=== PATIENT | female | born 1955 | race Caucasian/White ===

== ENCOUNTER 2019-03-29 21:12 | Emergency (ER) | payer MEDICARE ==
[~2019-03-29] VITALS: Ht 170.2 cm; Wt 80.3 kg
--- OUTSIDE RECORDS SUMMARY | 2019-03-29 21:15 | XMS REPORT ---
Author Author [facility] Address Unknown Phone Unavailable Care Team Providers Care Founder Ceo & President Name Role Phone Unavailable Unavailable Payers Payer Name Policy Type Policy Number Effective Date Expiration Date Problems This patient has no known problems. Allergies, Adverse Reactions, Alerts Allergy Name Allergy Type Status Severity Reaction(s) Onset Date Inactive Date Treating Clinician Comments sulfamethoxazole DA Active [place] 2014-04-13 00:00:00 trimethoprim DA Active [place] 2014-04-13 00:00:00 Medications This patient has no known medications. Results Test Description Test Time Test Comments Text Results Atomic Results Result Comments BREAST ULTRASOUND CORE BIOPSY RIGHT 2019-02-13 10:47:08 - BREAST ULTRASOUND CORE BIOPSY RIGHTULTRASOUND GUIDED BIOPSY RIGHT BREAST WITH MARKING DEVICE INSERTED: 02/11/2019CLINICAL: Ultrasound biopsy, right breast. An ultrasound guided biopsy using real-time ultrasound was performed for the 6 cm mass located in the right breast at 4 o'clock 5 cm from the nipple. The skin was prepped in the usual manner. Local anesthetic was administered to the access site. A 14 gauge biopsy needle was placed adjacent to the abnormality under ultrasound guidance. Once the needle was documented to be in the correct location, multiple specimens were obtained using a [employer] biopsy device. A clip was inserted into the biopsy cavity. The specimens were sent to the laboratory for pathological analysis. IMPRESSION: ULTRASOUND GUIDED BIOPSY BENIGN Ultrasound guided biopsy of the 6 cm mass in the right breast at 4 o'clock 5 cm from the nipple was successful with no apparent post procedure complications. PATHOLOGY INDICATES:Benign scar tissue. RECOMMENDATION:A follow-up mammogram and an ultrasound in 6 months is recommended to demonstrate stability. Margarita Rust M.D. dm/:02/13/2019 10:47:08 copy to: Charlie Man MD, ph: [phone], fax: [phone] Technologist: Alise Ojeda , [facility]- DIAG MAMM RIGHT CAD DIGITAL 2019-02-11 12:45:23 - DIAG MAMM RIGHT CAD DIGITALUNILATERAL RIGHT DIGITAL DIAGNOSTIC MAMMOGRAM WITH CAD - RIGHT BREAST POST-PROCEDURE IMAGING FOR MARKER PLACEMENT: 02/11/2019CLINICAL: Post Clip Placement,right breast. Current mammographic images were evaluated by either a [employer] M-Vu or a [employer] CAD (computer aided detection system). Comparison is made to exams dated 01/27/2019 mammogram, 07/01/2010 mammogram, and [facility] The tissue of the right breast is extremely dense, which lowers the sensitivity of mammography. There is a marker clip in the appropriate position in the right breast at 4 o'clock at the biopsy site. This can not be seen on mammogram.IMPRESSION: POST PROCEDURE IMAGING FOR MARKER PLACEMENTThere was a successful marker clip placement in the right breast. Margarita Rust M.D. dm/:02/11/2019 12:45:23 copy to: Charlie Man MD, ph: [phone], fax: [phone] Technologist: Betsy Soriano , [facility]: Post-procedure mammogram for marker placement BREAST ULTRASOUND BILATERAL 2019-01-28 09:40:41 - BREAST ULTRASOUND BILATERALULTRASOUND OF BOTH BREASTS AND BOTH AXILLA: 01/27/2019CLINICAL: History of Breast Cancer. Comparison is made to exam dated 07/01/2010 ultrasound - [facility]. Real-time ultrasound of both breasts and both axilla was performed. There is a 7 cm lobulated partially solid mass in the right breast at 4 o'clock. Color flow imaging demonstrates that there is increased vascularity. No abnormalities were seen sonographically in the left breast or the left axilla. IMPRESSION: SUSPICIOUS OF MALIGNANCY - FOLLOW-UP RECOMMENDEDThe 7 cm lobulated partially solid mass in the right breast needs histological evaluation. An ultrasound guided biopsy is recommended. Margarita Rust M.D. dm/:01/28/2019 09:40:41 Entry: - 01/30/2019 08:37:23copy to: Charlie Man MD, ph: [phone], fax: [phone] Technologist: Nadege ALDRIDGE, [facility]-letter sent: BIRADS 4/5 Biopsy Ultrasound BI-RADS: 4c Suspicious abnormality - moderate concern but not classic for malignancy DIAG MAMM LEFT DOV CAD DIGITAL 2019-01-27 10:32:59 - DIAG MAMM LEFT DOV CAD DIGITALUNILATERAL LEFT DIGITAL DIAGNOSTIC MAMMOGRAM 3D/2D WITH CAD: 01/27/2019CLINICAL: Right breast lump. Digital breast tomosynthesis was performed in addition to routine CC and MLO views. Current mammographic images were evaluated by either a [employer] M-Vu or a [employer] CAD (computer aided detection system). Comparison is made to exams dated 07/01/2010 mammogram and 10/05/2009 mammogram - [facility]-. The tissue of the left breast is extremely dense, which lowers the sensitivity of mammography. No suspicious mass, architectural distortion, malignant type calcification, or lymph node abnormality detected. IMPRESSION: INCOMPLETE ASSESSMENT: ADDITIONAL IMAGING EVALUATION RECOMMENDEDBilateral ultrasound pending for additional evaluation. There is no mammographic evidence of malignancy. Margarita Rust M.D. dm/:01/27/2019 10:32:59 Entry: - 01/30/2019 08:37:02copy to: Charlie Man MD, ph: [phone], fax: [phone] Technologist: Wendy ALDRIDGE, [facility] BI-RADS: 0 Indeterminate
[2019-03-29] MEDS ORDERED: KETOROLAC TROMETHAMINE 60 MG/2 ML VIAL IM ONE (21:30)
[2019-03-29] MEDS ORDERED: ORPHENADRINE CITRATE 30 MG/ML VIAL IM ONE (21:30)
[2019-03-29] MEDS ORDERED: HYDROCODONE/APAP 10MG-325MG TAB PO ONE (21:30)
--- NOTE | 2019-03-29 22:54 | Diagnostic Imaging Report ---
Right hip with pelvis 3 - views HISTORY: Pain COMPARISON: None FINDINGS: No displaced fracture. Osseous alignment is within normal limits. The joint spaces are well-maintained. Phleboliths. IMPRESSION: No acute radiographic abnormality. Signed by: Dr. Racquel Yeung M.D. on 03/29/2019 10:50 PM
--- NOTE | 2019-03-29 22:56 | Diagnostic Imaging Report ---
Lumbar spine 3 - views HISTORY: Pain COMPARISON: None FINDINGS: There are 5 nonrib-bearing lumbar-type vertebral bodies. No displaced fracture. Mild straightening of the normal lordosis may be related to muscle spasm or positioning. Osseous alignment is within normal limits. The disc spaces are relatively preserved. The soft tissues appear unremarkable. Surgical clips projected on right upper quadrant. Considerations of the distal aorta. IMPRESSION: No acute osseous abnormality. Signed by: Dr. Racquel Yeung M.D. on 03/29/2019 10:53 PM
[2019-03-29 23:38] VITALS: BP 130/84
== END 2019-03-29 23:46 | disposition home or self-care (01) ==
LOC: ER 21:12
DX: M25.551 Pain in right hip (principal); S39.012A Strain of muscle, fascia and tendon of lower back, initial encounter; I10 Essential (primary) hypertension; E11.9 Type 2 diabetes mellitus without complications
CPT/HCPCS: 72100; 73502; 99284; J1885; J2360